=== PATIENT | female | born 1995 | race Caucasian/White ===

== ENCOUNTER → 2019-05-19 | Outpatient (REF) | payer OTHER ==
[2019-05-19 19:27] LABS: CHLAMYDIA DNA AMPLIFICATION NEGATIVE (NEGATIVE); GC DNA AMPLIFICATION NEGATIVE (NEGATIVE)
[2019-05-23 00:06] LABS: HSV TYPE I IgG SPECIFIC <0.91 index (0.00-0.90); HSV TYPE I IgM AB <1:10 titer (<1:10); HSV TYPE II IgG SPECIFIC 6.32 index (0.00-0.90); HSV TYPE II IgM ABY <1:10 titer (<1:10)
== END ==
LOC: M SFHCLERA 11:09
PROVIDERS: ATTEND Nurse Practitioner Family
DX: N94.9 Unspecified condition associated with female genital organs and menstrual cycle (principal)

== ENCOUNTER → 2019-11-01 | Outpatient (CLI) | payer OTHER ==
[2019-11-01 13:14] LABS: BASO % 0.5 % (0.0-1.0); EOS # 0.1 10^3/uL (0.0-0.5); EOS % 1.1 % (0.0-3.0); HEMATOCRIT 41.4 % (36.0-47.0); HEMOGLOBIN 13.1 g/dl (12.0-15.5); LYMPH # 1.2 10^3/uL (1.5-5.0); LYMPH % 21.7 % (24.0-44.0); MEAN CORPUSCULAR HEMOGLOBIN 26.1 pg (27.0-33.0); MEAN CORPUSCULAR HGB CONC 31.6 g/dl (32.0-36.5); MEAN CORPUSCULAR VOLUME 82.6 fl (80.0-96.0); MONO # 0.3 10^3/uL (0.0-0.8); MONO % 5.9 % (0.0-5.0); NEUTROPHILS % 70.6 % (36.0-66.0); PLATELET COUNT, AUTOMATED 200 10^3/uL (150-450); RED BLOOD COUNT 5.01 10^6/uL (4.00-5.40); WHITE BLOOD COUNT 5.6 10^3/uL (4.0-10.0)
[2019-11-01 14:08] LABS: HIV 1&2 SCREEN CENTAUR NEGATIVE (NEGATIVE); RUBELLA IgG QUALITATIVE IMMUNE (IMMUNE)
[2019-11-01 15:25] LABS: CHLAMYDIA DNA AMPLIFICATION NEGATIVE (NEGATIVE); GC DNA AMPLIFICATION NEGATIVE (NEGATIVE)
== END ==
LOC: M PLALAB 10:19
PROVIDERS: ATTEND Advanced Practice Midwife
DX: Z34.81 Encounter for supervision of other normal pregnancy, first trimester (principal); Z3A.00 Weeks of gestation of pregnancy not specified

== ENCOUNTER → 2019-11-29 | Outpatient (REF) | payer OTHER | LOC: M SFHCWAGY 12:57 | PROVIDERS: ATTEND Advanced Practice Midwife | DX: Z12.4 Encounter for screening for malignant neoplasm of cervix (principal); Z34.81 Encounter for supervision of other normal pregnancy, first trimester ==

== ENCOUNTER → 2019-12-27 | Outpatient (CLI) | payer OTHER | LOC: M WHC 11:00 | PROVIDERS: ATTEND Obstetrics & Gynecology | DX: Z34.81 Encounter for supervision of other normal pregnancy, first trimester (principal) ==

== ENCOUNTER → 2020-01-17 | Outpatient (CLI) | payer OTHER ==
--- NOTE | 2020-01-18 04:27 | REP ---
Clinical: Anatomical evaluation. Comparison: None . Findings: Examination demonstrates a single live intrauterine in breech presentation. motion is identified by technologist. Placenta is noted right anterior and grade I without evidence for placenta previa or abruption. Amniotic fluid volume is normal. Cervix measures 3.6 cm in length and appears closed. No evidence for nuchal cord. Gestational age by current measurements 19 weeks 5 days with KEVIN 06/07/2020 . FHR equals 150 beats per minute. BPD 4.4 cm 19 weeks 2 days HC 16.2 cm 19 weeks 0 days AC 15.9 cm 21 weeks 0 days FL 3.3 cm 20 weeks 3 days HL 3.2 cm 20 weeks 4 days HC/AC ratio 1.02 Estimated weight 358 grams ( 77th percentile). Anatomical assessment demonstrates normal structures including cranium, choroid plexus, cavum, cerebellum/posterior fossa, facial features, lungs, four-chamber heart/ventricular outflow tracts, diaphragm, stomach, cord insertion/three-vessel cord, kidneys/bladder (known right pelvic kidney), spine, and extremities. Impression: Single live intrauterine in breech presentation demonstrating appropriate interval growth. Anatomical assessment is essentially complete and normal.
== END ==
LOC: M WHC 10:22
PROVIDERS: ATTEND Obstetrics & Gynecology
DX: Z34.81 Encounter for supervision of other normal pregnancy, first trimester (principal); Z3A.19 19 weeks gestation of pregnancy

== ENCOUNTER → 2020-03-12 | Outpatient (REF) | payer OTHER ==
[2020-03-12 13:59] LABS: HEMATOCRIT 38.6 % (36.0-47.0); HEMOGLOBIN 12.9 g/dl (12.0-15.5); MEAN CORPUSCULAR HEMOGLOBIN 28.5 pg (27.0-33.0); MEAN CORPUSCULAR HGB CONC 33.4 g/dl (32.0-36.5); MEAN CORPUSCULAR VOLUME 85.2 fl (80.0-96.0); PLATELET COUNT, AUTOMATED 165 10^3/uL (150-450); RED BLOOD COUNT 4.53 10^6/uL (4.00-5.40); WHITE BLOOD COUNT 6.3 10^3/uL (4.0-10.0)
== END ==
LOC: M PLALAB 10:07
PROVIDERS: ATTEND Advanced Practice Midwife
DX: Z3A.01 Less than 8 weeks gestation of pregnancy (principal)

== ENCOUNTER → 2020-05-13 | Outpatient (REF) | payer OTHER ==
[~2020-05-13] MED LIST: MAPA500T2 PO; PRENTAB9 PO; TUMS750C22 PO; VALT1TAB PO; ZOLO50TA PO
== END ==
LOC: M SFHCWAGY 07:03
PROVIDERS: ATTEND Obstetrics & Gynecology
DX: Z34.80 Encounter for supervision of other normal pregnancy, unspecified trimester (principal); Z3A.00 Weeks of gestation of pregnancy not specified
CPT/HCPCS: 87081; G0463

== ENCOUNTER 2020-06-04 05:05 | Inpatient (IN) | payer OTHER ==
[~2020-06-04] VITALS: Ht 149.9 cm; Wt 62.3 kg
[2020-06-04] VITALS (7 sets, daily range): BP systolic 114–134; BP diastolic 60–78
[2020-06-04 05:44] LABS: HEMATOCRIT 40.7 % (36.0-47.0); HEMOGLOBIN 13.7 g/dl (12.0-15.5); MEAN CORPUSCULAR HEMOGLOBIN 27.6 pg (27.0-33.0); MEAN CORPUSCULAR HGB CONC 33.7 g/dl (32.0-36.5); MEAN CORPUSCULAR VOLUME 82.1 fl (80.0-96.0); PLATELET COUNT, AUTOMATED 201 10^3/uL (150-450); RED BLOOD COUNT 4.96 10^6/uL (4.00-5.40); WHITE BLOOD COUNT 11.1 10^3/uL (4.0-10.0)
[2020-06-04] MEDS ORDERED: BUTORPHANOL 2 MG/ML INJ (J0595) IV ONE (05:45)
[2020-06-04] MEDS ORDERED: PROMETHAZINE INJ 25 MG/ML VIAL (J2550) IV ONE (05:45)
[2020-06-04] MEDS ORDERED: OXYTOCIN 30 UNITS IN 0.9% NaCl 500ML IV BAG (J2590) As Ordered ONE (06:14)
--- NOTE | 2020-06-04 07:04 | HPEPDOC ---
Obstetrical History & Physical General Date of Admission Jun 04, 2020 at 05:49 Primary Care Physician: AMITA LYONS CNM History of Present Illness Gail is 24-year-old female who is a at 40 weeks gestation with an KEVIN of 06/04/20. She initiated care with [facility]. No chart is available to review. She re ports a potential HSV outbreak over a week ago and took prophylactic treatment. She denies any current physical HSV symptoms. Her has also been complicated by depression and anxiety which she is taking Zoloft 50 mg daily for. She presents to L&D with complaints of contractions and active movement. She denies leaking of fluid and vaginal bleeding. Chief Complaint: Active Labor Information Provided By: Patient Age: 24 : 2 Term: 1 Pre-term: 0 Abortions: 0 Livin Care Care: Good Care Dating Final EDC: Jun 04, 2020 LMP: Aug 29, 2019 EGA at Admission: 40 Antepartum Course Diagnos(e)s HSV II Height (inches): 59 Admission Weight (lbs.): 137 Past Medical History Past Obstetrical History : Past Obstetrical History: Primgravida Date of Delivery: Jul 13, 2017 Gestation: 39.1 Type of Delivery: Spontaneous Vaginal Del. 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: Herpes simplex virus(HSV) (HSV II) Past Medical History Medical History heart murmur right pelvic kidney that is small (half normal size but functioning) Surgical History: Tonsilectomy Family History Significant Family History: Cancer (skin cancer), Diabetes, Other (mother with cardiomyopathy with second delivery) Social History Marital Status: Family situation: Spouse/partner home Psychosocial History: Anxiety, Depression * Smoker: non-smoker Alcohol: Denies Drugs: denies Abuse Violence Screening Have you been hit/kicked/slapp: No Have you been sexually assault: No Allergies Coded Allergies: No Known Allergies (Verified Allergy, Unknown, 06/04/20) Medications Scheduled No.137/Iron/Folic Acd ( Vitamin Tablet) 1 Each Tablet, 1 TAB PO DAILY Miscellaneous Medications Acetaminophen (Mapap) 500 Mg Tablet, 1,000 MG PO Calcium Carbonate (Tums) 300 Mg Tab.chew, 750 MG PO Calcium Carbonate (Tums) 300 Mg Tab.chew, 750 MG PO Physical Examination Physical Examination GENERAL: Alert and oriented times three. Respiratory: CTA bilaterally. ABDOMEN: Gravid and non-tender to touch. FETUS: Is vertex (VTX) by sterile vaginal examination (SVE), fetus is vertex (VTX) by Marlo. LUNGS: Clear to auscultation (CTA). EXTREMITIES: Generalized edema. No clonus. Perineum: shaved and no visual lesions present. Unable to do vaginal or cervical inspection due to precipitous delivery. Laboratory Data 24H LABS Laboratory Tests 2 06/04/20 05:37: Nucleated Red Blood Cells % (auto) 0.0 06/04/20 05:57: Serology Scanned Report Hepatitis B Testing CBC/BMP Laboratory Tests 06/04/20 05:37 Urine Culture: No Growth Pertinent Laboratoy Data Blood Type: O+ RBC Antibody Screen: Negative Hepatitis B: Negative Hepatitis C: Negative Rapid Plasma Reagin: Nonreactive Rubella: Immune Chlamydia/Gonorrhea: Negative Group B Streptococcus: Negative Glucose Tolerance Test: 121 Vaginal Examination Dilation: 9 cm (anterior lip) Effacement: 100% Station: +1 Presentation: Cephalic presentation Position: Vertex (occiput) Assessment Heart Rate (FHR): 140 Variability: Moderate Accelerations: Positive Decelerations: Early Tocometer Contractions: Yes Frequency: regular Multi-drug resistant Organism: No history of MDRO Assessment/Plan Assessment IUP 40 weeks gestation GBS negative Category I FHR tracing active labor Plan Admit to L&D. OOB ad jere. Diet: clears. Group B Streptococcus (GBS) negative. Labs and intravenous (IV) per unit protocol. Anesthesia consult per patient's request. Lactated Ringers (LR): Bolus 800 mL prior to epidural, then at 125 mL/hr. Anticipate vaginal delivery. C-S as appropriate. AMITA LYONS CNM Jun 04, 2020 07:04
[2020-06-04 07:06] LABS: CORD GAS HCO3 A 25.8 MEQ/L; CORD GAS O2 SAT A 19.1 %; CORD GAS PCO2 A 57.8 mmHg; CORD GAS PCO2 V 47.4 mmHg; CORD GAS PH A 7.268 UNITS; CORD GAS PH V 7.308 UNITS; CORD GAS PO2 A 13.4 mmHg; CORD GAS PO2 V 19.3 mmHg; CORD GAS SBC A 21.2 MEQ/L; CORD GAS TCO2 A 27.6 MEQ/L
[2020-06-04 07:07] LABS: CORD GAS ABE V -3.3; CORD GAS HCO3 V 23.2 MEQ/L; CORD GAS O2 SAT V 36.1 %; CORD GAS SBC V 20.5 MEQ/L; CORD GAS TCO2 V 24.7 MEQ/L
[2020-06-04] MEDS ORDERED: TUMS750C22 PO (07:14)
[2020-06-04] MEDS ORDERED: MAPA500T2 PO (07:14)
[2020-06-04] MEDS ORDERED: PRENTAB9 PO (07:14)
[2020-06-04] MEDS ORDERED: OXYTOCIN DRIP 30 UNITS in IV 1 EA IV SCH (07:26)
[2020-06-04] MEDS ORDERED: DOCUSATE SODIUM 100 MG CAP PO PRN (07:30)
[2020-06-04] MEDS ORDERED: ACETAMINOPHEN TAB 650MG DOSE (2X325MG) PO PRN (07:30)
[2020-06-04] MEDS ORDERED: ACETAMINOPHEN 500 MG TAB PO PRN (07:30)
[2020-06-04] MEDS ORDERED: ANUSOL HC CREAM 30GM TOP PRN (07:30)
[2020-06-04] MEDS ORDERED: RHOGAM 300 MCG (1500 IU) INJ (J2790) IM SCH (07:30)
[2020-06-04] MEDS ORDERED: MEASLES,MUMPS,RUBELLA VACCINE INJ (MMR-II) (90707) SC SCH (07:30)
[2020-06-04] MEDS ORDERED: DIBUCAINE 1% OINTMENT 30GM TOP PRN (07:30)
[2020-06-04] MEDS ORDERED: IBUPROFEN 600MG TAB PO PRN (07:30)
[2020-06-04] MEDS ORDERED: IBUPROFEN 800 MG TAB PO PRN (07:30)
[2020-06-04] MEDS ORDERED: METHYLERGONOVINE MALEATE 0.2 MG TAB PO PRN (07:30)
[2020-06-04] MEDS ORDERED: VALT1TAB PO (08:33)
[2020-06-04] MEDS ORDERED: ZOLO50TA PO (08:33)
--- NOTE | 2020-06-04 08:50 | DNPDOC ---
[facility] Delivery Note Delivery Note DATE OF DELIVERY: 06/04/20 at 0622 PREDELIVERY DIAGNOSIS: 40-0/7 weeks' gestation and labor. POST DELIVERY DIAGNOSIS: Delivered. PROCEDURE: Spontaneous vaginal delivery. FARMWORKER RICE: Amita Mccarty CNM, RENAY ANESTHESIA: none. ESTIMATED BLOOD LOSS: 200 mL. FINDINGS: 7 pounds 5 ounces; 3330 grams; female infant, Score 7/8, right compound hand with thick meconium. Precipitous delivery. DELIVERY SUMMARY: Gail is a 24-year-old female who is now a at 40 weeks gestation who presented to L&D in active labor. She reports her contractions starting at 0100 and becoming more regular at 0300. She presented to L&D at 0530 and and was 5 cm and progressed quickly to fully dilated at 0620. She spontaneously ruptured at 0621 to a moderate amount of thick meconium. She pushed to a living female in the TALI position with restitution to LOT. The anterior shoulder delivered with ease and the corpus immediately followed. The baby was placed on the maternal abdomen active and crying. The cord was clamped x2 after 1 minute and cut by the FOB. Cord gases were obtained. The placenta delivered spontaneously and intact at 0631. Uterine hemostasis was achieved via rapid infusion of IV Pitocin and fundal massage. The vagina, cervix, and perineum were inspected and found to be intact. Both mom and baby are instable condition. Mom is . All counts of instruments and sponges are correct. AMITA MCCARTY CNM Jun 04, 2020 08:50
[2020-06-04] MEDS: SERTRALINE HCL 50 MG TAB PO SCH (09:26)
[2020-06-04] MEDS: PRENATAL VITAMINS CHEWABLE TABLET PO SCH (09:26)
[2020-06-05 06:00] VITALS: BP 105/55
[2020-06-05] MEDS: PRENATAL VITAMINS CHEWABLE TABLET PO SCH (08:25)
[2020-06-05] MEDS: SERTRALINE HCL 50 MG TAB PO SCH (08:25)
[2020-06-05] MEDS ORDERED: INFLUENZA QUADRIVALENT PF VACCINE 0.5ML SYRINGE IM ONE (09:00)
[2020-06-05] MEDS ORDERED: BOOSTRIX/ADACEL VACCINE (DIPHTH/PERTUSS/ACELL/TETANUS) 0.5ML SYR IM ONE (09:00)
--- NOTE | 2020-06-05 09:05 | IPNPDOC ---
Progress Note Date of Service: Jun 05, 2020 Day#: 1 Progress Note PPD 1 SUBJECT: Gail is a 24yo [id number] s/p uncomplicated at 40wk after presenting in labor, doing well day # 1. She has been ambulating, voiding spontaneously without issue and tolerating regular diet. Breast feeding without issue. Reports lochia is like a normal period. No f/c/n/v/CP/SOB. Highly desirous of discharge home today. OBJECTIVE: VITAL SIGNS: Within normal limits, afebrile. Alert and oriented times three. Abdomen: Fundus firm at U-2. Soft, NTTP. Extremities: no edema of BLE ASSESSMENT: Gail is a 24yo [id number] s/p uncomplicated at 40wk after pres enting in labor, doing well day # 1. Vitals within normal limits, afebrile, hemodynamically stable with no evidence of infection. PLAN: 1. Discharge to home today. 2. Tylenol and Motrin for pain, patient states she has some at home and does not need Rx 3. Encouraged breast feeding and ambulation. 4. Regular diet 5. Undecided on contraception 6. Routine PP visit in 6 weeks in clinic. 7. Discussed return precautions at length. Nara Shields MD VS, I&O, 24H, Fishbone Vital Signs/I&O Vital Signs Date Time Temp Pulse Resp B/P (MAP) Pulse Ox O2 Delivery O2 Flow Rate FiO2 06/05/20 06:00 98.0 77 20 105/55 (72) 97 Room Air I&O- Last 24 Hours up to 6 AM 06/05/20 06:00 Output Total 650 ml Balance -650 ml Nara Shields MD Jun 05, 2020 09:05
--- NOTE | 2020-06-05 09:08 | DS.PDOC ---
Discharge Summary General Date of Admission Jun 04, 2020 at 05:49 Date of Discharge Jun 05, 2020 Discharge Summary PROCEDURES PERFORMED DURING STAY: spontaneous vaginal delivery ADMITTING DIAGNOSES: 1. Active labor at term DISCHARGE DIAGNOSES: 1. Active labor at term, delivered COMPLICATIONS/CHIEF COMPLAINT: Labor Check. HISTORY OF PRESENT ILLNESS/HOSPITAL COURSE: Gail is a 24yo [id number] s/p uncomplicated at 40wk after presenting in labor, doing well day # 1. At time of discharge, vitals were within normal limits, afebrile, hemodynamically stable with no evidence of infection. DISCHARGE MEDICATIONS: Please see below. ALLERGIES: Please see below. PHYSICAL EXAMINATION ON DISCHARGE: VITAL SIGNS: Within normal limits, afebrile. Alert and oriented times three. Abdomen: Fundus firm at U-2. Soft, NTTP. Extremities: no edema of BLE LABORATORY DATA: Please see below. ACTIVITY: As tolerated, vaginal rest and no heavy lifting 6 weeks DISPOSITION: home DISCHARGE PLAN/INSTRUCTIONS: 1. Discharge to home today. 2. Tylenol and Motrin for pain, patient states she has some at home and does not need Rx 3. Encouraged breast feeding and ambulation. 4. Regular diet 5. Undecided on contraception 6. Routine PP visit in 6 weeks in clinic. 7. Discussed return precautions at length. DISCHARGE CONDITION: Stable TIME SPENT ON DISCHARGE: Greater than 20 minutes. Nara Shields MD Vital Signs/I&Os Vital Signs Date Time Temp Pulse Resp B/P (MAP) Pulse Ox O2 Delivery O2 Flow Rate FiO2 06/05/20 06:00 98.0 77 20 105/55 (72) 97 Room Air I&O- Last 24 Hours up to 6 AM 06/05/20 06:00 Output Total 650 ml Balance -650 ml Discharge Medications Scheduled No.137/Iron/Folic Acd ( Vitamin Tablet) 1 Each Tablet, 1 TAB PO DAILY, (Reported) Sertraline Hcl (Zoloft) 50 Mg Tablet, 1 TAB PO DAILY, (Reported) Valacyclovir HCl (Valtrex) 1,000 Mg Tablet, 1 TAB PO BID, (Reported) Miscellaneous Medications Acetaminophen (Mapap) 500 Mg Tablet, 1,000 MG PO, (Reported) Calcium Carbonate (Tums) 300 Mg Tab.chew, 750 MG PO, (Reported) Allergies Coded Allergies: No Known Allergies (Verified Allergy, Unknown, 06/04/20) Nara Shields MD Jun 05, 2020 09:08
== END 2020-06-05 13:25 | disposition home or self-care (01) | DRG 806 ==
LOC: M LDO 05:05 → M LDI 05:49 → M OBS 10:23
PROVIDERS: ADMIT Advanced Practice Midwife; ATTEND Advanced Practice Midwife
PROC: 10E0XZZ Delivery of Products of Conception, External Approach (ICD-10-PCS; principal; 2020-06-04)
DX: O48.0 Post-term pregnancy (principal); Z37.0 Single live birth; O98.52 Other viral diseases complicating childbirth; Z3A.40 40 weeks gestation of pregnancy; F32.9 Major depressive disorder, single episode, unspecified; F41.9 Anxiety disorder, unspecified; O99.344 Other mental disorders complicating childbirth; B00.9 Herpesviral infection, unspecified; O77.0 Labor and delivery complicated by meconium in amniotic fluid; O32.6XX0 Maternal care for compound presentation, not applicable or unspecified

== ENCOUNTER → 2021-11-19 | Outpatient (CLI) | payer OTHER ==
[2021-11-19 15:38] LABS: BASO % 0.3 % (0.0-1.0); EOS # 0.1 10^3/uL (0.0-0.5); EOS % 0.7 % (0.0-3.0); HEMATOCRIT 38.4 % (36.0-47.0); HEMOGLOBIN 12.7 g/dl (12.0-15.5); LYMPH # 1.3 10^3/uL (1.5-5.0); LYMPH % 18.1 % (24.0-44.0); MEAN CORPUSCULAR HEMOGLOBIN 26.6 pg (27.0-33.0); MEAN CORPUSCULAR HGB CONC 33.1 g/dl (32.0-36.5); MEAN CORPUSCULAR VOLUME 80.5 fl (80.0-96.0); MONO # 0.4 10^3/uL (0.0-0.8); MONO % 5.1 % (2.0-8.0); NEUTROPHILS # 5.4 10^3/uL (1.5-8.5); NEUTROPHILS % 75.4 % (36.0-66.0); PLATELET COUNT, AUTOMATED 189 10^3/uL (150-450); RED BLOOD COUNT 4.77 10^6/uL (4.00-5.40); WHITE BLOOD COUNT 7.2 10^3/uL (4.0-10.0)
[2021-11-19 17:27] LABS: GC DNA AMPLIFICATION NEGATIVE (NEGATIVE)
[2021-11-19 17:32] LABS: HEPATITIS C VIRUS ABY INDEX 0.1 INDEX (<0.8); HIV 1&2 SCREEN CENTAUR NEGATIVE (NEGATIVE)
== END ==
LOC: M PLALAB 13:41
PROVIDERS: ATTEND Advanced Practice Midwife
DX: Z34.81 Encounter for supervision of other normal pregnancy, first trimester (principal)

== ENCOUNTER → 2022-01-21 | Outpatient (CLI) | payer OTHER | LOC: M WHC 12:45 | PROVIDERS: ATTEND Specialist | DX: Z34.82 Encounter for supervision of other normal pregnancy, second trimester (principal) ==

== ENCOUNTER → 2022-03-27 | Outpatient (CLI) | payer OTHER ==
[2022-03-27 13:40] LABS: HEMATOCRIT 36.5 % (36.0-47.0); HEMOGLOBIN 12.2 g/dl (12.0-15.5); MEAN CORPUSCULAR HEMOGLOBIN 27.8 pg (27.0-33.0); MEAN CORPUSCULAR HGB CONC 33.4 g/dl (32.0-36.5); MEAN CORPUSCULAR VOLUME 83.1 fl (80.0-96.0); PLATELET COUNT, AUTOMATED 176 10^3/uL (150-450); RED BLOOD COUNT 4.39 10^6/uL (4.00-5.40)
[2022-03-27 15:03] LABS: GC DNA AMPLIFICATION NEGATIVE (NEGATIVE)
== END ==
LOC: M PLALAB 09:18
PROVIDERS: ATTEND Obstetrics & Gynecology
DX: Z34.82 Encounter for supervision of other normal pregnancy, second trimester (principal); Z3A.23 23 weeks gestation of pregnancy
CPT/HCPCS: 36415; 82950; 85027; 86850; 86900; 86901; 87810; 87850; 90471; 90715; G0463

== ENCOUNTER 2023-03-01 16:46 | Emergency (ER) | payer OTHER ==
[~2023-03-01] VITALS: Ht 147.3 cm; Wt 52.8 kg
[2023-03-01] MEDS ORDERED: NS 1,000 ML IV ONE (17:50)
[2023-03-01 18:05] LABS: HEMATOCRIT 47.3 % (36.0-47.0); HEMOGLOBIN 15.9 g/dl (12.0-15.5); MEAN CORPUSCULAR HEMOGLOBIN 25.6 pg (27.0-33.0); MEAN CORPUSCULAR HGB CONC 33.6 g/dl (32.0-36.5); MEAN CORPUSCULAR VOLUME 76.3 fl (80.0-96.0); PLATELET COUNT, AUTOMATED 154 10^3/uL (150-450); WHITE BLOOD COUNT 2.7 10^3/uL (4.0-10.0)
[2023-03-01 18:31] LABS: ALBUMIN 3.9 G/DL (3.2-5.2); ALKALINE PHOSPHATASE 76 U/L (46-116); ALT/SGPT 17 U/L (7.0-40); AST/SGOT 17 U/L (<34); BILIRUBIN,TOTAL 0.3 MG/DL (0.3-1.2); BLOOD UREA NITROGEN 12 MG/DL (9-23); CARBON DIOXIDE LEVEL 21 MMOL/L (20-31); CHLORIDE LEVEL 103 MMOL/L (98-107); CREATININE FOR GFR 0.69 MG/DL (0.55-1.30); GLOMERULAR FILTRATION RATE > 60.0 (>60); GLUCOSE, FASTING 105 MG/DL (60-100); POTASSIUM SERUM 3.3 MMOL/L (3.5-5.1); SODIUM LEVEL 137 MMOL/L (136-145); TOTAL PROTEIN 7.6 G/DL (5.7-8.2)
[2023-03-01] MEDS ORDERED: POTASSIUM CHLORIDE 10MEQ SR TABLET PO ONE (18:35)
[2023-03-01 18:41] LABS: HCG, SERUM QUALITATIVE NEGATIVE (NEGATIVE)
[2023-03-01] MEDS: NS 1,000 ML IV SCH ×4 (19:06→20:04)
[2023-03-01 20:15] VITALS: BP 150/85
[2023-03-01] MEDS ORDERED: ONDA4TAB6 PO (20:28)
[2023-03-01] MEDS ORDERED: LOPERAMIDE 2 MG CAPLET PO ONE (20:30)
== END 2023-03-01 20:36 | disposition home or self-care (01) ==
LOC: M ED 16:46
DX: A08.0 Rotaviral enteritis (principal)